=== PATIENT | female | born 1980 | race Caucasian/White ===

== ENCOUNTER 2017-04-21 15:47 | Emergency (ER) | payer OTHER ==
[~2017-04-21] VITALS: Ht 167.6 cm; Wt 114.0 kg
[~2017-04-21 15:47] MED LIST: AMOXICILLIN500 MG PO; AUGMENTIN875TAB PO; BUSPAR5 MG PO; CIPROFLOXACN500 MG PO; CITALOPRAM40 MG PO; FLONASE NASAL50 MCG; LORTAB 10 PO; LORTAB 1010 MG PO; LORTAB 5 OR; MEDDOSEPAK PO; MIRTAZAPINE15 MG PO; NO HOME MEDS; TAM75CAP PO; VENTOLIN HF1 IN; ZOFRAN ODT4 MG PO
[2017-04-21] MEDS ORDERED: TRAMADOL HYDROC50 MG PO (16:29)
[2017-04-21 16:34] LABS: HEMOGLOBIN 12.8 g/dl (12.0-16.0); IMMATURE GRANULOCYTES 0.5 % (0.0-1.0); MEAN CELL VOLUME 94.2 fL CALC (80.0-100.0); MEAN CORPUSCULAR HGB 30.9 pG CALC (26.0-32.0); MEAN CORPUSCULAR HGB CONC 32.8 g/L CALC (32.0-36.0); NEUT# 4.71 thou/uL (2.00-7.15); RED BLOOD COUNT 4.14 mill/uL (4.20-5.60); RED CELL DISTRI WIDTH 13.8 % (11.5-15.5)
[2017-04-21 16:46] LABS: ALBUMIN 3.8 g/dL (3.2-5.0); ALKALINE PHOSPHATASE 68 u/l (38-126); ANION GAP 14 (6-22 (CALC)); BILIRUBIN, TOTAL 0.6 mg/dL (0.0-1.4); BUN 11 mg/dL (7-17); BUN/CREATININE RATIO 16 (12-20 (CALC)); CALCIUM 8.8 mg/dL (8.4-10.2); CARBON DIOXIDE 24 mmol/l (22-30); CHLORIDE 109 mmol/l (95-108); CREATININE 0.7 mg/dL (0.5-1.0); GFR > 60 ML/MIN (>=60 (CALC)); GFR FOR AFR.AMER. > 60 ML/MIN (>=60 (CALC)); GLUCOSE 127 mg/dL (65-105); LIPASE 100 u/l (23-300); POTASSIUM 4.2 mmol/l (3.5-5.1); SGOT/AST 32 u/l (14-36); SGPT/ALT 36 u/l (9-52); SODIUM 143 mmol/l (137-146); TOTAL PROTEIN 6.9 g/dL (6.3-8.2)
[2017-04-21 17:46] LABS: URINE BILIRUBIN - DIPSTICK NEGATIVE (NEGATIVE); URINE BLOOD DIPSTICK LARGE (NEGATIVE); URINE COLOR YELLOW; URINE GLUCOSE - DIPSTICK NEGATIVE (NEGATIVE); URINE KETONE NEGATIVE (NEGATIVE); URINE LEUK ESTERASE NEGATIVE (NEGATIVE); URINE NITRITE - DIPSTICK NEGATIVE (Negative); URINE PROTEIN - DIPSTICK NEGATIVE (NEG-TRACE); URINE UROBILINOGEN - DIPSTICK 0.2 E.U./dL (0.2)
[2017-04-21 17:47] LABS: URINE CLARITY SL CLOUDY
[2017-04-21 17:52] LABS: URINE AMORPH SEDIMENT FEW hpf (NONE-FEW); URINE SQUAMOUS EPITHELIAL CELL FEW EPI/hpf (0-FEW); URINE WBC 0-2 WBC/hpf (0-5)
[2017-04-21] MEDS ORDERED: TORADOL PO (19:58)
[2017-04-21] MEDS ORDERED: ZOFRAN4 MG/TAB PO (20:01)
[2017-04-21 20:11] VITALS: BP 105/58
== END 2017-04-21 20:11 | disposition home or self-care (01) | DRG 392 ==
LOC: ED 15:47
PROVIDERS: Family Medicine
DX: R10.12 Left upper quadrant pain (principal); F17.210 Nicotine dependence, cigarettes, uncomplicated; F31.9 Bipolar disorder, unspecified; F41.9 Anxiety disorder, unspecified; J45.909 Unspecified asthma, uncomplicated

== ENCOUNTER 2019-07-12 18:45 | Observation (INO) | payer OTHER ==
[~2019-07-12] VITALS: Ht 167.6 cm; Wt 129.0 kg
[~2019-07-12 18:45] MED LIST changes: +BACLOFEN20 MG PO; +CYCLOBENZAPR10 MG PO; +DICLOFEN POT50 MG PO; +HYDROCO/APAP1 TA9 PO; +LEVOTHYROXIN50 MCG PO; +METOPROL TAR25 MG PO; +MOTRIN800 MG PO; +TORADOL PO; +TRAMADOL HYDROC50 MG PO; +ZOFRAN4 MG/TAB PO
--- NOTE | 2019-07-12 18:49 | NUR ---
PT TO ROOM 10 CO OF PALPITATIONS THAT STARTED AT NOON, WENT AWAY AND CAME BACK A FEW HOURS AGO.
--- NOTE | 2019-07-12 19:07 | NUR ---
IV SITE INFILTRATED PT DID NOT RECEIVE ADENOCARD, WILL RESTART IV AND REPEAT DOSE.
--- NOTE | 2019-07-12 19:13 | NUR ---
ADENOCARD 6MG PUSHE AND PT CONVERTED TO [address]
--- NOTE | 2019-07-12 19:24 | NUR ---
RECIEVED CARE OF PATIENT. PT RESTING ON STRETCHER. AO X 3. NSR. NO COMPLAINTS AT THIS TIME. SIGNIFICANT OTHER AT BEDSIDE
[2019-07-12 19:36] LABS: HEMATOCRIT 40.7 % (37.0-47.0); IMMATURE GRANULOCYTES 0.6 % (0.0-5.0); MEAN CELL VOLUME 92.7 fL CALC (80.0-100.0); MEAN CORPUSCULAR HGB 29.6 pG CALC (26.0-32.0); MEAN CORPUSCULAR HGB CONC 31.9 g/L CALC (32.0-36.0); NEUT# 6.14 thou/uL (2.00-7.15); RED BLOOD COUNT 4.39 mill/uL (4.20-5.60)
[2019-07-12 19:55] LABS: ALBUMIN 3.8 g/dL (3.2-5.0); ALKALINE PHOSPHATASE 73 u/l (38-126); ANION GAP 12 (6-22 (CALC)); BILIRUBIN, TOTAL 0.4 mg/dL (0.0-1.4); BUN 11 mg/dL (7-17); BUN/CREATININE RATIO 18 (12-20 (CALC)); CARBON DIOXIDE 23 mmol/l (22-30); CHLORIDE 110 mmol/l (95-108); CREATININE 0.6 mg/dL (0.5-1.0); GFR > 60 ML/MIN (>=60 (CALC)); GFR FOR AFR.AMER. > 60 ML/MIN (>=60 (CALC)); POTASSIUM 4.7 mmol/l (3.5-5.1); SODIUM 140 mmol/l (137-146)
[2019-07-12 20:01] LABS: SGOT/AST 64 u/l (14-36)
--- NOTE | 2019-07-12 20:28 | NUR ---
PT RESTING COMFORTABLY. EATING ICE CHIPS.
--- NOTE | 2019-07-12 20:56 | NUR ---
REPORT CALLED TO GRACIE DAILEYDRUG ABUSE PROGRAM COORDINATOR
--- NOTE | 2019-07-12 21:17 | NUR ---
PT TAKEN VIA WHEELCHAIR TO BATHROOM. RETURNED TO ROOM MONITORS APPLIED. PT AWAITING ADMISSION
--- NOTE | 2019-07-12 21:28 | NUR ---
PT RESTING ON STRETCHER. NO COMPLAINTS AT THIS TIME
--- NOTE | 2019-07-12 21:35 | NUR ---
PT TRANSPORTED VIA STRETCHER TO [facility]
[2019-07-12 21:44] LABS: BARBITURATES NEGATIVE (NEGATIVE); COCAINE NEGATIVE (NEGATIVE); METHADONE NEGATIVE (NEGATIVE); OXCYCODONE NEGATIVE (NEGATIVE); TETRAHYDROCANNABIONOL NEGATIVE (NEGATIVE); TRICYLIC ANTIDEPRESSANTS NEGATIVE (NEGATIVE)
--- NOTE | 2019-07-12 21:48 | NUR ---
NO ANSWER ON MED SURG. UNABLE TO GIVE REPORT AT THIS TIME
--- NOTE | 2019-07-12 21:56 | NUR ---
MED SURG UNABLE TO TAKE REPORT AT THIS TIME
--- NOTE | 2019-07-12 22:04 | NUR ---
REPORT GIVEN TO JEFFY DAILEYBMX RIDER
--- NOTE | 2019-07-12 22:16 | NUR ---
PT TAKEN VIA WHEELCHAIR TO MED SURG. TELEMETRY IN PLACE
[2019-07-12 22:20] VITALS: BP 136/91
--- NOTE | 2019-07-12 23:00 | NUR ---
PATIENT ADMITTED FROM ER VIA WHEELCHAIR WITH ER STAFF IN ATTENDANCE. PATIENT ABLE TO AMBULATE TO BR TO VOID WITHOUT ANY DIFFICULTY. ALERT AND ORIENTEDX3. PATIENT ADMITTED FOR SVT-TREATED IN ER AND HERE FOR OBS WITH TELE MONITOR. HR-90'S AT THIS TIME. DENIES ANY CHEST PAIN, PALPATATIONS OR SOB. STATES THAT SHE IS FEELING BETTER. PATIENT WITH HX OF BIPOLAR AND PTSD. PATIENT ABLE TO EAT MEAL BROUGHT IN BY FAMILY. PATIENT ALSO BEING TREATED FOR CHRONIC PATRICK PAIN.PATIENT WITH SALINE LOCK TO LEFT AC-INTAT AND APPEARS HEALTHY AT THIS TIME, PATIENT ORIENTED TO ROOM AND SURROUNDINGS. INSTRUCTED ON USE OF NURSE CALL LIGHT SYSTEM, TV REMOTE AND PHONE. SAFETY PRECAUTIONS REINFORCED. MEDICATED FOR BACK PAIN WITH LORTAB AND FLEXERIL ORDERED. CALL LIGHT IN REACH. GREG CONT TO EMELIIOR.
[2019-07-12 23:28] VITALS: BP 129/78
[2019-07-13 03:20] VITALS: BP 120/70
--- NOTE | 2019-07-13 04:00 | NUR ---
PATIENT PPEARS SLEEPING AT THIS TIME-POSITIONED ON HER LEFT SIDE. RESPS ARE EVEN AND UNLABORED. CALL LIGHT IN REACH. WILL CONT TO MONITOR.
--- NOTE | 2019-07-13 08:00 | NUR ---
SHIFT CHANGE REPORT, PT SLEEPING SOUNDLY AND SMORING, TELE MONITOR IN PLACE, NO SIGN DISCOMFORT, CALL REED IN REACH.
[2019-07-13 09:21] VITALS: BP 128/83
--- NOTE | 2019-07-13 09:30 | NUR ---
AWAKE ALERT AND ORIENTED SITTING UP IN BED, MEDICAL TEAM ROUNDING, PT C/O SEVERE BACK PAIN, CONCERN ADDRESSED.
[2019-07-13 10:33] LABS: CHOLESTEROL HDL RATIO 4.6 (<4.4 (CALC))
[2019-07-13 11:00] VITALS: BP 131/70
[2019-07-13 11:11] LABS: TSH, 3RD GENERATION 2.84 uIU/mL (0.47 - 4.68)
--- NOTE | 2019-07-13 13:01 | NUR ---
Discharge instructions given. Patient verbalizes understanding of same. Discharged in good condition via Ambulatory to Home with family. All belongings sent with pt.
== END 2019-07-13 12:55 | disposition home or self-care (01) ==
LOC: ED 18:45 → ED-I 21:01 → ED 21:14 → ED-I 21:15 → MS2 21:15
PROVIDERS: Emergency Medicine; Family Medicine; Nurse Practitioner Family; ADMIT Internal Medicine; ATTEND Internal Medicine
DX: I47.1 Supraventricular tachycardia (principal); I10 Essential (primary) hypertension; E03.9 Hypothyroidism, unspecified; J43.9 Emphysema, unspecified; G47.33 Obstructive sleep apnea (adult) (pediatric); E78.5 Hyperlipidemia, unspecified; F17.200 Nicotine dependence, unspecified, uncomplicated
CPT/HCPCS: G0378; J0153

== ENCOUNTER 2020-09-28 09:39 | Emergency (ER) | payer OTHER ==
[~2020-09-28] VITALS: Ht 167.6 cm; Wt 120.0 kg
[2020-09-28] MEDS ORDERED: METOPROL TAR25 MG PO (09:58)
[2020-09-28] MEDS ORDERED: LEVOTHYROXIN125 MCG PO (09:59)
[2020-09-28 10:19] LABS: HEMATOCRIT 44.4 % (37.0-47.0); IMMATURE GRANULOCYTES 0.7 % (0.0-5.0); MEAN CELL VOLUME 89.9 fL CALC (80.0-100.0); MEAN CORPUSCULAR HGB 28.3 pG CALC (26.0-32.0); MEAN CORPUSCULAR HGB CONC 31.5 g/dL CAL (32.0-36.0); NEUT# 7.46 thou/uL (2.00-7.15); RED BLOOD COUNT 4.94 mill/uL (4.20-5.60); RED CELL DISTRI WIDTH 14.7 % (11.5-15.5)
[2020-09-28 10:34] LABS: ALKALINE PHOSPHATASE 79 u/l (38-126); ANION GAP 15 (6-22 (CALC)); BUN 10 mg/dL (7-17); BUN/CREATININE RATIO 15 (12-20 (CALC)); CARBON DIOXIDE 21 mmol/l (22-30); CHLORIDE 103 mmol/l (95-108); CREATININE 0.6 mg/dL (0.5-1.0); GFR > 60 ML/MIN (>=60 (CALC)); GFR FOR AFR.AMER. > 60 ML/MIN (>=60 (CALC)); LIPASE 108 u/l (23-300); POTASSIUM 4.7 mmol/l (3.5-5.1); SODIUM 134 mmol/l (137-146); TOTAL PROTEIN 7.7 g/dL (6.3-8.2)
[2020-09-28 10:39] LABS: BILIRUBIN, TOTAL 0.7 mg/dL (0.0-1.4); SGOT/AST 96 u/l (14-36)
[2020-09-28 10:46] LABS: MYOGLOBIN 69 ng/mL (0 - 62)
[2020-09-28 12:06] LABS: TSH, 3RD GENERATION 4.84 uIU/mL (0.47 - 4.68)
[2020-09-28 12:11] LABS: URINE BILIRUBIN - DIPSTICK NEGATIVE (NEGATIVE); URINE BLOOD DIPSTICK TRACE-LYSED (NEGATIVE); URINE COLOR YELLOW; URINE GLUCOSE - DIPSTICK NEGATIVE (NEGATIVE); URINE KETONE NEGATIVE (NEGATIVE); URINE LEUK ESTERASE NEGATIVE (NEGATIVE); URINE PH 5.5 (4.5-8.0); URINE PROTEIN - DIPSTICK 100 mg/dL (NEG-TRACE); URINE SPECIFIC GRAVITY >=1.030; URINE UROBILINOGEN - DIPSTICK 0.2 E.U./dL (0.2)
[2020-09-28 12:21] LABS: URINE NITRITE - DIPSTICK NEGATIVE (Negative)
[2020-09-28 12:23] LABS: URINE RBC 0-2 RBC/hpf (0-5); URINE SQUAMOUS EPITHELIAL CELL MANY EPI/hpf (0-FEW)
[2020-09-28 12:24] LABS: URINE CASTS FEW lpf (NONE-RARE)
[2020-09-28 12:50] VITALS: BP 107/61
== END 2020-09-28 13:00 | disposition home or self-care (01) ==
LOC: ED 09:39
PROVIDERS: Emergency Medicine
DX: I47.1 Supraventricular tachycardia (principal); J44.9 Chronic obstructive pulmonary disease, unspecified; F31.9 Bipolar disorder, unspecified; G47.30 Sleep apnea, unspecified; F17.210 Nicotine dependence, cigarettes, uncomplicated
CPT/HCPCS: J0153

== ENCOUNTER 2020-10-26 19:01 | Emergency (ER) | payer OTHER ==
[~2020-10-26] VITALS: Ht 167.6 cm; Wt 111.0 kg
[~2020-10-26 19:01] MED LIST changes: +LEVOTHYROXIN125 MCG PO
[2020-10-26 19:48] LABS: HEMATOCRIT 43.4 % (37.0-47.0); MEAN CELL VOLUME 90.4 fL CALC (80.0-100.0); MEAN CORPUSCULAR HGB 29.2 pG CALC (26.0-32.0); MEAN CORPUSCULAR HGB CONC 32.3 g/dL CAL (32.0-36.0); NEUT# 5.17 thou/uL (2.00-7.15); RED BLOOD COUNT 4.8 mill/uL (4.20-5.60); RED CELL DISTRI WIDTH 14.4 % (11.5-15.5)
[2020-10-26] MEDS ORDERED: ADVAIR DISK1 IN (19:48)
[2020-10-26] MEDS ORDERED: METFORMIN500 M2 PO (19:48)
[2020-10-26 20:00] LABS: ALBUMIN 4.1 g/dL (3.2-5.0); ALKALINE PHOSPHATASE 68 u/l (38-126); ANION GAP 15 (6-22 (CALC)); BILIRUBIN, TOTAL 0.3 mg/dL (0.0-1.4); BUN 9 mg/dL (7-17); BUN/CREATININE RATIO 15 (12-20 (CALC)); CARBON DIOXIDE 25 mmol/l (22-30); CHLORIDE 103 mmol/l (95-108); CREATININE 0.6 mg/dL (0.5-1.0); GFR > 60 ML/MIN (>=60 (CALC)); GFR FOR AFR.AMER. > 60 ML/MIN (>=60 (CALC)); SGOT/AST 62 u/l (14-36); SODIUM 139 mmol/l (137-146); TOTAL PROTEIN 7.7 g/dL (6.3-8.2)
[2020-10-26 20:06] LABS: D-DIMER 0.5 mg/L (0.19-0.60)
[2020-10-26 20:10] LABS: IMMATURE GRANULOCYTES 0.3 % (0.0-5.0)
[2020-10-26 20:12] LABS: MYOGLOBIN 22 ng/mL (0 - 62)
[2020-10-26 20:15] LABS: URINE BILIRUBIN - DIPSTICK NEGATIVE (NEGATIVE); URINE BLOOD DIPSTICK TRACE-INTACT (NEGATIVE); URINE COLOR YELLOW; URINE GLUCOSE - DIPSTICK NEGATIVE (NEGATIVE); URINE KETONE NEGATIVE (NEGATIVE); URINE LEUK ESTERASE NEGATIVE (NEGATIVE); URINE PROTEIN - DIPSTICK NEGATIVE (NEG-TRACE); URINE SPECIFIC GRAVITY <=1.005; URINE UROBILINOGEN - DIPSTICK 0.2 E.U./dL (0.2)
[2020-10-26 20:18] LABS: URINE NITRITE - DIPSTICK NEGATIVE (Negative)
[2020-10-26 20:20] LABS: ACT PARTIAL THROMBO TIME 25.4 SECONDS (20.0-32.5); INTERNATIONAL NORMALIZED RATIO 1.1 RATIO (0.7-1.3); PROTHROMBIN TIME 11.4 SECONDS (9.0-12.5)
[2020-10-26] MEDS ORDERED: METOPROLOL TAR100 MG PO (21:16)
[2020-10-26 21:19] VITALS: BP 124/77
== END 2020-10-26 21:30 | disposition home or self-care (01) ==
LOC: ED 19:01
PROVIDERS: Family Medicine
DX: I47.1 Supraventricular tachycardia (principal); I10 Essential (primary) hypertension; J44.9 Chronic obstructive pulmonary disease, unspecified; F31.9 Bipolar disorder, unspecified; G47.30 Sleep apnea, unspecified; F17.200 Nicotine dependence, unspecified, uncomplicated
CPT/HCPCS: J0153

== ENCOUNTER 2021-03-25 17:02 | Emergency (ER) | payer OTHER ==
[~2021-03-25] VITALS: Ht 167.6 cm; Wt 111.0 kg
[~2021-03-25 17:02] MED LIST changes: +ADVAIR DISK1 IN; +METFORMIN500 M2 PO; +METOPROLOL TAR100 MG PO
[2021-03-25 17:47] LABS: HEMATOCRIT 43.2 % (37.0-47.0); HEMOGLOBIN 13.3 g/dl (12.0-16.0); IMMATURE GRANULOCYTES 0.4 % (0.0-5.0); MEAN CELL VOLUME 86.9 fL CALC (80.0-100.0); MEAN CORPUSCULAR HGB 26.8 pG CALC (26.0-32.0); MEAN CORPUSCULAR HGB CONC 30.8 g/dL CAL (32.0-36.0); NEUT# 6.3 thou/uL (2.00-7.15); RED BLOOD COUNT 4.97 mill/uL (4.20-5.60); RED CELL DISTRI WIDTH 15.3 % (11.5-15.5)
[2021-03-25 17:56] LABS: ALBUMIN 4.6 g/dL (3.2-5.0); ALKALINE PHOSPHATASE 72 u/l (38-126); ANION GAP 17 (6-22 (CALC)); BILIRUBIN, TOTAL 0.6 mg/dL (0.0-1.4); BUN 10 mg/dL (7-17); BUN/CREATININE RATIO 15 (12-20 (CALC)); CARBON DIOXIDE 22 mmol/l (22-30); CHLORIDE 106 mmol/l (95-108); CREATININE 0.7 mg/dL (0.5-1.0); GFR > 60 ML/MIN (>=60 (CALC)); GFR FOR AFR.AMER. > 60 ML/MIN (>=60 (CALC)); POTASSIUM 4.7 mmol/l (3.5-5.1); SGOT/AST 29 u/l (14-36); SODIUM 141 mmol/l (137-146); TOTAL PROTEIN 8.7 g/dL (6.3-8.2)
[2021-03-25 18:08] LABS: MYOGLOBIN 24 ng/mL (0 - 62)
[2021-03-25 18:14] LABS: PROTHROMBIN TIME 10.7 SECONDS (9.0-12.5)
[2021-03-25] MEDS ORDERED: METOPROL TAR100 MG PO (19:03)
[2021-03-25 19:15] VITALS: BP 103/57
== END 2021-03-25 19:15 | disposition home or self-care (01) ==
LOC: ED 17:02
PROVIDERS: Family Medicine
DX: I47.1 Supraventricular tachycardia (principal); I10 Essential (primary) hypertension; J44.9 Chronic obstructive pulmonary disease, unspecified; F31.9 Bipolar disorder, unspecified; G47.30 Sleep apnea, unspecified; F17.200 Nicotine dependence, unspecified, uncomplicated

== ENCOUNTER 2021-12-06 08:54 | Emergency (ER) | payer OTHER ==
[~2021-12-06] VITALS: Ht 167.6 cm; Wt 89.0 kg
[~2021-12-06 08:54] MED LIST changes: +METOPROL TAR100 MG PO
[2021-12-06 09:16] VITALS: BP 123/70
[2021-12-06 09:29] LABS: HEMOGLOBIN 11.9 g/dl (12.0-16.0); IMMATURE GRANULOCYTES 0.1 % (0.0-5.0); MEAN CORPUSCULAR HGB 25.5 pG CALC (26.0-32.0); MEAN CORPUSCULAR HGB CONC 32.4 g/dL CAL (32.0-36.0); NEUT# 9.9 thou/uL (2.00-7.15); RED BLOOD COUNT 4.67 mill/uL (4.20-5.60); RED CELL DISTRI WIDTH 17.9 % (11.5-15.5)
[2021-12-06 09:39] LABS: HEMATOCRIT 36.7 % (37.0-47.0); MEAN CELL VOLUME 78.6 fL CALC (80.0-100.0)
[2021-12-06 09:47] LABS: ALBUMIN 3.9 g/dL (3.2-5.0); ALKALINE PHOSPHATASE 49 u/l (38-126); ANION GAP 13 (6-22 (CALC)); BILIRUBIN, TOTAL 0.6 mg/dL (0.0-1.4); BUN 6 mg/dL (7-17); BUN/CREATININE RATIO 12 (12-20 (CALC)); CARBON DIOXIDE 18 mmol/l (22-30); CHLORIDE 114 mmol/l (95-108); CREATININE 0.5 mg/dL (0.5-1.0); GFR FOR AFR.AMER. > 60 ML/MIN (>=60 (CALC)); GFR OTHER RACES > 60 ML/MIN (>=60 (CALC)); POTASSIUM 4.4 mmol/l (3.5-5.1); SGOT/AST 20 u/l (14-36); SODIUM 140 mmol/l (137-146)
[2021-12-06 10:00] LABS: MYOGLOBIN 18 ng/mL (0 - 62)
[2021-12-06 10:01] VITALS: BP 94/61
[2021-12-06 10:16] VITALS: BP 108/52
[2021-12-06] MEDS ORDERED: CITALOPRAM20 M1 (10:21)
[2021-12-06] MEDS ORDERED: TRULICITY4.5 MG/0.5 (10:23)
[2021-12-06] MEDS ORDERED: TIZANIDINE4 MG PO (10:24)
[2021-12-06 10:31] VITALS: BP 95/67
[2021-12-06 10:45] VITALS: BP 95/67
[2021-12-06 10:53] LABS: URINE BILIRUBIN - DIPSTICK NEGATIVE (NEGATIVE); URINE BLOOD DIPSTICK NEGATIVE (NEGATIVE); URINE COLOR YELLOW; URINE GLUCOSE - DIPSTICK NEGATIVE (NEGATIVE); URINE KETONE NEGATIVE (NEGATIVE); URINE LEUK ESTERASE NEGATIVE (NEGATIVE); URINE PROTEIN - DIPSTICK 30 mg/dL (NEG-TRACE); URINE UROBILINOGEN - DIPSTICK 0.2 E.U./dL (0.2)
[2021-12-06 10:56] LABS: URINE NITRITE - DIPSTICK NEGATIVE (Negative)
[2021-12-06 10:58] LABS: URINE EPITHELIAL CELLS FEW EPI/hpf (0-FEW); URINE MUCUS MODERATE hpf (NONE-FEW)
[2021-12-07] MEDS ORDERED: PROAIR HFA108 MCG/AC IN (06:40)
[2021-12-07] MEDS ORDERED: SPIRIVA HANDIH18 MCG IN (06:41)
== END 2021-12-06 10:52 | disposition left against medical advice (07) ==
LOC: ED 08:54 → ED-I 10:15 → ED 10:52
PROVIDERS: Emergency Medicine
DX: I47.1 Supraventricular tachycardia (principal); I10 Essential (primary) hypertension; E11.9 Type 2 diabetes mellitus without complications; J44.9 Chronic obstructive pulmonary disease, unspecified; E78.5 Hyperlipidemia, unspecified; F31.9 Bipolar disorder, unspecified; F17.210 Nicotine dependence, cigarettes, uncomplicated; Z91.19 Patient's noncompliance with other medical treatment and regimen; Z82.49 Family history of ischemic heart disease and other diseases of the circulatory system; Z20.822 Contact with and (suspected) exposure to COVID-19

== ENCOUNTER 2021-12-07 06:19 | Emergency (ER) | payer OTHER ==
[~2021-12-07] VITALS: Ht 167.6 cm; Wt 89.0 kg
[~2021-12-07 06:19] MED LIST changes: +CITALOPRAM20 M1; +TIZANIDINE4 MG PO; +TRULICITY4.5 MG/0.5
[2021-12-07 06:28] VITALS: BP 120/69
[2021-12-07 06:31] VITALS: BP 129/65
[2021-12-07] MEDS ORDERED: PROAIR HFA108 MCG/AC IN (06:40)
[2021-12-07] MEDS ORDERED: SPIRIVA HANDIH18 MCG IN (06:41)
[2021-12-07 07:43] LABS: HEMATOCRIT 36.1 % (37.0-47.0); HEMOGLOBIN 11.6 g/dl (12.0-16.0); IMMATURE GRANULOCYTES 0.2 % (0.0-5.0); MEAN CELL VOLUME 78.8 fL CALC (80.0-100.0); MEAN CORPUSCULAR HGB 25.3 pG CALC (26.0-32.0); MEAN CORPUSCULAR HGB CONC 32.1 g/dL CAL (32.0-36.0); NEUT# 6.08 thou/uL (2.00-7.15); RED BLOOD COUNT 4.58 mill/uL (4.20-5.60); RED CELL DISTRI WIDTH 17.9 % (11.5-15.5)
[2021-12-07 07:55] LABS: ALBUMIN 3.9 g/dL (3.2-5.0); ALKALINE PHOSPHATASE 46 u/l (38-126); ANION GAP 12 (6-22 (CALC)); BILIRUBIN, TOTAL 0.5 mg/dL (0.0-1.4); BUN 8 mg/dL (7-17); BUN/CREATININE RATIO 15 (12-20 (CALC)); CHLORIDE 110 mmol/l (95-108); CREATININE 0.5 mg/dL (0.5-1.0); GFR FOR AFR.AMER. > 60 ML/MIN (>=60 (CALC)); GFR OTHER RACES > 60 ML/MIN (>=60 (CALC)); POTASSIUM 4.1 mmol/l (3.5-5.1); SGOT/AST 23 u/l (14-36); SODIUM 140 mmol/l (137-146); TOTAL PROTEIN 7.2 g/dL (6.3-8.2)
[2021-12-07 07:57] LABS: CARBON DIOXIDE 22 mmol/l (22-30)
[2021-12-07 08:01] LABS: D-DIMER 0.62 mg/L (0.19-0.60)
[2021-12-07 08:04] LABS: ACT PARTIAL THROMBO TIME 27.2 SECONDS (20.0-32.5); INTERNATIONAL NORMALIZED RATIO 1.1 RATIO (0.7-1.3); PROTHROMBIN TIME 10.5 SECONDS (9.0-12.5)
[2021-12-07 08:06] LABS: MYOGLOBIN 19 ng/mL (0 - 62)
[2021-12-07 11:41] VITALS: BP 129/65
== END 2021-12-07 11:50 | disposition home or self-care (01) ==
LOC: ED 06:19
PROVIDERS: Family Medicine
DX: R00.2 Palpitations (principal); J44.9 Chronic obstructive pulmonary disease, unspecified; I10 Essential (primary) hypertension; F31.9 Bipolar disorder, unspecified; J45.909 Unspecified asthma, uncomplicated; F17.210 Nicotine dependence, cigarettes, uncomplicated; Z79.84 Long term (current) use of oral hypoglycemic drugs

== ENCOUNTER 2024-04-23 01:56 | Emergency (ER) | payer OTHER ==
[~2024-04-23] VITALS: Ht 167.6 cm; Wt 97.5 kg
[~2024-04-23 01:56] MED LIST changes: +NABUMETONE750 MG PO; +ORPHENADRINE100 MG PO; +PROAIR HFA108 MCG/AC IN; +SPIRIVA HANDIH18 MCG IN
[2024-04-23] MEDS ORDERED: LORazepam 1 MG/TAB PO ONE (02:40)
[2024-04-23 02:51] VITALS: BP 136/91
== END 2024-04-23 02:51 | disposition home or self-care (01) ==
LOC: ED 01:56
DX: F41.9 Anxiety disorder, unspecified (principal); I10 Essential (primary) hypertension; J44.9 Chronic obstructive pulmonary disease, unspecified; F31.9 Bipolar disorder, unspecified; F17.200 Nicotine dependence, unspecified, uncomplicated